=== PATIENT | female | born 1995 | race Two or more races ===

== ENCOUNTER 2021-12-19 08:21 | Outpatient (CLI) | payer OTHER ==
[2021-12-19 18:41] LABS: SARS-CoV-2 PCR by NAA Not Detected (NotDetected)
== END 2021-12-19 08:22 | disposition home or self-care (01) ==
LOC: CSHLAB 08:21
PROVIDERS: ATTEND Advanced Practice Midwife
DX: Z20.822 Contact with and (suspected) exposure to COVID-19 (principal)
CPT/HCPCS: U0003; U0005

== ENCOUNTER 2021-12-19 11:58 | Inpatient (IN) | payer OTHER, MEDICAID ==
[2021-12-19 12:58] VITALS: BMI 46.7
[2021-12-19] MEDS ORDERED: Diphenoxylate HCl/Atropine Tablet PO PRN (13:15)
[2021-12-19] MEDS ORDERED: Penicillin G Potassium 5 MILL.UNITS in Sodium Chloride 0.9% 100 ML IVPB SCH (13:15)
[2021-12-19] MEDS ORDERED: Promethazine HCl 25 MG/ML VIAL IM PRN ×4 (13:15→20:30)
[2021-12-19] MEDS ORDERED: NS w/ Oxytocin 30 units 500 ML IV SCH ×2 (13:15)
[2021-12-19] MEDS ORDERED: Ibuprofen 800 MG TAB PO PRN (13:15)
[2021-12-19] MEDS ORDERED: hydrALAZINE 20 MG/ML VIAL SLOW IVP PRN (13:15)
[2021-12-19] MEDS ORDERED: Misoprostol 200 MCG TAB PR PRN (13:15)
[2021-12-19] MEDS ORDERED: Lactated Ringer's 1,000 ML IV SCH (13:15)
[2021-12-19] MEDS ORDERED: HYDROcodone/Acetaminophen 5/325 mg Tablet PO PRN ×2 (13:15)
[2021-12-19] MEDS ORDERED: Penicillin G 2.5 MILL.units 2.5 MILL.UNITS in Premix Bag 1 BAG IVPB SCH (13:15)
[2021-12-19] MEDS ORDERED: Lidocaine 1% (PF) 30 ML VIAL SC PRN (13:15)
[2021-12-19] MEDS ORDERED: Acetaminophen 500 MG TAB PO PRN (13:15)
[2021-12-19] MEDS ORDERED: Ondansetron PF 4 MG/2 ML Vial IVP PRN ×4 (13:15→20:30)
[2021-12-19] MEDS ORDERED: Carboprost 250 MCG/ML AMP IM PRN (13:15)
[2021-12-19] MEDS ORDERED: Butorphanol Tartrate 1 MG/ML VIAL SLOW IVP PRN (13:15)
[2021-12-19] MEDS ORDERED: Misoprostol 100 MCG TAB ONE (13:32)
[2021-12-19] MEDS: Misoprostol 100 MCG TAB VAG SCH (13:36)
[2021-12-19 14:00] LABS: Hemoglobin 13.2 g/dL (12.0-15.5); Mean Corpuscular HGB CONC 33.9 g/dL (32.0-36.0); Mean Corpuscular Hemoglobin 29.7 pg (27.0-33.0); Mean Corpuscular Volume 87.4 fl (81.6-98.3); Mean Platelet Volume 10.5 fl (7.4-10.4); Platelet Count 195 10x3/uL (150-450); RBC Distribution Width 12.9 % (11.5-14.5); Red Blood Cell (RBC) Count 4.45 10x6/uL (3.90-5.03); White Blood Cell (WBC) Count 12.6 10x3/uL (3.5-10.5)
[2021-12-19 14:32] LABS: ALT (SGPT) 18 U/L (8-55); AST (SGOT) 34 U/L (5-34); Albumin 3.4 g/dL (3.5-5.0); Alkaline Phosphatase 148 U/L (40-110); Anion Gap 18 mmol/L (10-20); BUN (Urea Nitrogen) 8 mg/dL (7.0-18.7); Bilirubin, Total 0.3 mg/dL (0.2-1.2); Calc. Creatinine Clearance 258 mL/min (70-130); Carbon Dioxide 19 mmol/L (22-29); Chloride 107 mmol/L (98-107); Globulin 3.7 g/dL (2.4-3.5); Glucose 75 mg/dL (70-105); Potassium 5.2 mmol/L (3.5-5.1); Protein, Total 7.1 g/dL (6.0-8.3); Sodium 139 mmol/L (136-145); Uric Acid 4.8 mg/dL (2.6-6.0)
[2021-12-19 14:36] LABS: Hep B Surf Ag Non-Reactive S/CO (NonReactive)
[2021-12-19 14:38] LABS: HBSAg Index 0.15 S/CO (0-0.99); Syphilis Antibody Nonreactive (Nonreactive); Syphilis Antibody Index 0.04 S/CO (<1.00 Non-Reactive)
[2021-12-19 17:46] LABS: Potassium 3.8 mmol/L (3.5-5.1)
[2021-12-19] MEDS ORDERED: ceFAZolin 2 GM/Dextrose 50 ML IVPB ONE (18:44)
[2021-12-19] MEDS ORDERED: PHENYLEPHRINE-NS 100 MCG/ML 10 ML SYRINGE ONE (18:50)
[2021-12-19] MEDS ORDERED: ePHEDrine Sulfate 50 MG/10 ML VIAL ONE (18:50)
[2021-12-19] MEDS ORDERED: Ketorolac Tromethamine 30 MG/ML VIAL ONE (18:50)
[2021-12-19] MEDS ORDERED: Fentanyl 100 MCG/2 ML VIAL ONE (18:50)
[2021-12-19] MEDS ORDERED: Oxytocin 10 UNITS/ML VIAL ONE (18:50)
[2021-12-19] MEDS ORDERED: Morphine PF 10 MG/10 ML VIAL ONE (18:50)
[2021-12-19] MEDS ORDERED: Bicitra 30 ML UDCUP PO PRN (18:58)
[2021-12-19] MEDS ORDERED: Famotidine/PF 20 mg/2ml Vial SLOW IVP PRN (18:58)
[2021-12-19] MEDS ORDERED: ceFAZolin 2 GM/Dextrose 50 ML 2 GM in Premix Bag 1 BAG IVPB SCH (19:00)
[2021-12-19] MEDS ORDERED: Naloxone HCl 0.4 mg/ml Vial IV PRN ×3 (20:27→20:30)
[2021-12-19] MEDS ORDERED: Meperidine HCl/PF 25 MG/ML VIAL SLOW IVP PRN (20:27)
[2021-12-19] MEDS ORDERED: Promethazine HCl 25 MG SUPP PR PRN ×3 (20:27→20:30)
[2021-12-19] MEDS ORDERED: Ondansetron HCl/PF 4 MG/2 ML Vial IVP PRN (20:27)
[2021-12-19] MEDS ORDERED: Naloxone HCl 0.4 mg/ml Vial IVP PRN ×6 (20:27→20:30)
[2021-12-19] MEDS ORDERED: HYDROmorphone 2 MG/ML VIAL SLOW IVP PRN (20:27)
[2021-12-19] MEDS ORDERED: Moisturizing Cream (Eucerin) 113 GM JAR TOP PRN ×3 (20:27→20:30)
[2021-12-19] MEDS ORDERED: diphenhydrAMINE 50 MG/ML VIAL IVP PRN ×3 (20:27→20:30)
[2021-12-19] MEDS ORDERED: Fentanyl 100 MCG/2 ML VIAL SLOW IVP PRN (20:27)
[2021-12-19] MEDS ORDERED: Ketorolac Tromethamine 30 MG/ML VIAL IVP PRN (20:30)
[2021-12-19] MEDS ORDERED: Communication Order-Pharmacy FS SCH ×3 (20:30)
[2021-12-19] MEDS ORDERED: Labetalol HCl 100 MG TAB PO SCH (21:00)
[2021-12-20] MEDS ORDERED: Lanolin Ointment 7 GM TUBE TOP PRN (00:09)
[2021-12-20] MEDS ORDERED: hydrALAZINE 20 MG/ML VIAL SLOW IVP PRN (00:09)
[2021-12-20] MEDS ORDERED: Boostrix 0.5 ML (Tdap) VIAL IM ONE (00:09)
[2021-12-20] MEDS ORDERED: Ondansetron PF 4 MG/2 ML Vial IVP PRN (00:09)
[2021-12-20] MEDS ORDERED: Simethicone Chewable 80 MG TAB PO PRN (00:09)
[2021-12-20] MEDS ORDERED: Bisacodyl 10 MG SUPP PR PRN (00:09)
[2021-12-20] MEDS ORDERED: NS w/ Oxytocin 30 units 500 ML IV SCH (00:30)
[2021-12-20] MEDS ORDERED: Ferrous Sulfate 325 MG TAB PO SCH (00:45)
[2021-12-20] MEDS ORDERED: Docusate 100 MG CAP PO SCH (00:45)
[2021-12-20 03:58] LABS: Hemoglobin 11.7 g/dL (12.0-15.5); Mean Corpuscular HGB CONC 32.9 g/dL (32.0-36.0); Mean Corpuscular Hemoglobin 29.2 pg (27.0-33.0); Mean Corpuscular Volume 88.8 fl (81.6-98.3); Mean Platelet Volume 9.2 fl (7.4-10.4); Platelet Count 248 10x3/uL (150-450); RBC Distribution Width 12.7 % (11.5-14.5); Red Blood Cell (RBC) Count 4.01 10x6/uL (3.90-5.03)
[2021-12-20] MEDS ORDERED: HYDROcodone/Acetaminophen 5/325 mg Tablet PO PRN ×3 (08:30)
[2021-12-20] MEDS ORDERED: Diphenoxylate HCl/Atropine Tablet PO PRN (08:30)
[2021-12-20] MEDS ORDERED: Butorphanol Tartrate 1 MG/ML VIAL SLOW IVP PRN (08:30)
[2021-12-20] MEDS: Ferrous Sulfate 325 MG TAB PO SCH ×2 (09:20→21:44)
[2021-12-20] MEDS: Docusate 100 MG CAP PO SCH ×2 (09:23→21:45)
[2021-12-20] MEDS: Prenatal Vitamin 1 TAB PO SCH (09:23)
[2021-12-20] MEDS: HYDROcodone/Acetaminophen 5/325 mg Tablet PO PRN (11:45)
[2021-12-20] MEDS: Ibuprofen 800 MG TAB PO SCH ×2 (13:56→21:45)
[2021-12-20] MEDS ORDERED: Ibuprofen 800 MG TAB PO PRN (22:00)
[2021-12-21] MEDS: Ibuprofen 800 MG TAB PO SCH ×3 (05:26→22:03)
[2021-12-21] MEDS: Misoprostol 100 MCG TAB VAG SCH (07:00)
[2021-12-21] MEDS: Prenatal Vitamin 1 TAB PO SCH (08:59)
[2021-12-21] MEDS: Docusate 100 MG CAP PO SCH ×2 (08:59→22:03)
[2021-12-21] MEDS: Ferrous Sulfate 325 MG TAB PO SCH ×2 (09:00→19:17)
[2021-12-21] MEDS: HYDROcodone/Acetaminophen 5/325 mg Tablet PO PRN (12:21)
[2021-12-22] MEDS: Ibuprofen 800 MG TAB PO SCH (05:50)
[2021-12-22 07:21] VITALS: BP 136/65; TEMP 97.8
[2021-12-22] MEDS: Docusate 100 MG CAP PO SCH (08:29)
[2021-12-22] MEDS: Prenatal Vitamin 1 TAB PO SCH (08:29)
[2021-12-22] MEDS: Ferrous Sulfate 325 MG TAB PO SCH (08:29)
== END 2021-12-22 10:50 | disposition home or self-care (01) | DRG 787 ==
LOC: CSHLD 11:58 → CSHPP 23:15
PROVIDERS: ADMIT Obstetrics & Gynecology; ATTEND Obstetrics & Gynecology
PROC: 10D00Z1 Extraction of Products of Conception, Low, Open Approach (ICD-10-PCS; principal; 2021-12-19)
PROC: 3E0P7VZ Introduction of Hormone into Female Reproductive, Via Natural or Artificial Opening (ICD-10-PCS; 2021-12-19)
DX: O10.92 Unspecified pre-existing hypertension complicating childbirth (principal); O98.52 Other viral diseases complicating childbirth; O99.214 Obesity complicating childbirth; Z3A.37 37 weeks gestation of pregnancy; E66.01 Morbid (severe) obesity due to excess calories; O99.824 Streptococcus B carrier state complicating childbirth; O76 Abnormality in fetal heart rate and rhythm complicating labor and delivery; Z37.0 Single live birth; Z79.899 Other long term (current) drug therapy; B00.9 Herpesviral infection, unspecified
CPT/HCPCS: 36415; 80053; 84550; 85027; 86780; 86850; 86900; 86901; 87340; J1885; J2274; J2590; J3010

== ENCOUNTER 2024-05-31 15:21 | Emergency (ER) | payer BC ==
[~2024-05-31 15:21] MED LIST: Iopamidol 370 76% 100 ML VIAL ONE
[2024-05-31] MEDS ORDERED: Metoclopramide HCl 10 MG (2 mL) VIAL ONE (17:00)
[2024-05-31] MEDS ORDERED: Magnesium 2 GM/50 ML BAG (IN WATER) ONE (17:00)
[2024-05-31] MEDS ORDERED: diphenhydrAMINE 50 MG/ML VIAL ONE (17:00)
[2024-05-31 17:17] LABS: #Basophils 0.04 10x3/uL (0.0-0.2); #Eosinophils 0.07 10x3/uL (0.0-0.5); #Monocytes 0.57 10x3/uL (0.0-1.1); #Neutrophils 5.95 10x3/uL (1.5-8.4); %Basophils 0.4 % (0.0-2.0); %Eosinophils 0.7 % (0.0-6.0); %Lymphocytes 30.2 % (18.0-47.0); %Monocytes 5.9 % (0.0-10.0); Hematocrit 35.7 % (34.9-44.5); Hemoglobin 11.4 g/dL (12.0-15.5); Mean Corpuscular HGB CONC 31.9 g/dL (32.0-36.0); Mean Corpuscular Hemoglobin 24.9 pg (27.0-33.0); Mean Corpuscular Volume 78.1 fL (81.6-98.3); Mean Platelet Volume 9.3 fL (7.4-10.4); Platelet Count 337 10x3/uL (150-450); RBC Distribution Width 17.2 % (11.5-14.5); Red Blood Cell (RBC) Count 4.57 10x6/uL (3.90-5.03); White Blood Cell (WBC) Count 9.6 10x3/uL (3.5-10.5)
[2024-05-31 17:25] LABS: Prothrombin Time 10.9 sec (9.5-12.1)
[2024-05-31 17:28] LABS: ALT (SGPT) 13 U/L (8-55); AST (SGOT) 12 U/L (5-34); Albumin 3.2 g/dL (3.5-5.0); Alkaline Phosphatase 47 U/L (40-110); Anion Gap 13 mmol/L (10-20); BUN (Urea Nitrogen) 5 mg/dL (7.0-18.7); Bilirubin, Total 0.2 mg/dL (0.2-1.2); Calc. Creatinine Clearance 0 mL/min (70-130); Calcium 9.3 mg/dL (7.8-10.44); Carbon Dioxide 21 mmol/L (22-29); Chloride 104 mmol/L (98-107); Estimated GFR 104; Globulin 3.9 g/dL (2.4-3.5); Glucose 85 mg/dL (70-105); Protein, Total 7.1 g/dL (6.0-8.3); Sodium 134 mmol/L (136-145)
[2024-05-31] MEDS ORDERED: Labetalol HCl 100 MG TAB PO SCH (18:45)
[2024-05-31 19:23] LABS: Creatinine, Urine 210.38 mg/dL (47-110)
== END 2024-05-31 22:09 | disposition home or self-care (01) ==
LOC: CSHERS 15:21
DX: O99.892 Other specified diseases and conditions complicating childbirth (principal); O16.2 Unspecified maternal hypertension, second trimester; Z3A.17 17 weeks gestation of pregnancy
CPT/HCPCS: 70450; 70460; 80053; 82570; 84156; 85025; 85610; 96374; 96375; J1200; J2765; J3475; Q9967

== ENCOUNTER 2024-10-06 19:46 | Emergency (ER) | payer OTHER | END 2024-10-06 20:41 | LOC: CSHERS 19:46 | DX: O99.891 Other specified diseases and conditions complicating pregnancy (principal); R10.9 Unspecified abdominal pain; I10 Essential (primary) hypertension; Z3A.36 36 weeks gestation of pregnancy ==

== ENCOUNTER 2025-06-27 09:29 | Outpatient (CLI) | payer OTHER | END 2025-06-27 09:30 | disposition home or self-care (01) | LOC: CSHMAMMO 09:29 → CSHULT 09:30 | PROVIDERS: ATTEND Nurse Practitioner Women's Health | DX: N63.21 Unspecified lump in the left breast, upper outer quadrant (principal) ==